=== PATIENT | female | born 1980 | race American Indian/Alaskan Native ===

== ENCOUNTER 2016-09-19 21:47 | Emergency (ER) | payer MEDICAID, OTHER ==
[2016-09-19 21:47] VITALS: BMI 29.1
[2016-09-19 21:56] VITALS: BP 108/74; PULSE 110; TEMP 98.5; O2SAT 98
[2016-09-19] MEDS ORDERED: DiphenhydrAMINE 50 mg/ml Inj IM STA (22:44)
[2016-09-19] MEDS ORDERED: DiphenhydrAMINE 50 mg/ml Inj ONE (22:49)
--- NOTE | 2016-09-19 22:50 | C.PDOC ---
History Of Present Illness 36 year old patient presents to the ED complaining of a generalized rash that began after spending a night at her friend's house. Patient notes the rash is itchy. Patient denies any fever, chills, nausea, vomiting, chest tightness, lip swelling, or difficulty breathing. Time Seen by Provider: 09/19/16 22:26 Chief Complaint (Nursing): Abnormal Skin Integrity History Per: Patient History/Exam Limitations: no limitations Onset/Duration Of Symptoms: Hrs (this morning) Current Symptoms Are (Timing): Still Present Quality Of Symptoms: Itching Severity: Mild Pain Scale Rating Of: 3 Recent travel outside of the [place]: No Past Medical History Reviewed: Historical Data, Nursing Documentation, Vital Signs Vital Signs: Last Vital Signs Temp 98.5 F 09/19/16 21:52 Pulse 110 H 09/19/16 21:52 Resp 20 09/19/16 23:04 BP 108/74 09/19/16 21:52 Pulse Ox 98 09/19/16 22:58 - Medical History PMH: Asthma Surgical [facility]: [place] [facility] [place]JECT/INFUSE ELECTROLYT (02/01/14) INJECT/INFUSE NEC (02/01/14) Family History: States: Unknown Family Hx - Social History Hx Tobacco Use: Yes Hx Alcohol Use: Yes Hx Substance Use: No - Immunization History Hx Tetanus Toxoid Vaccination: No Hx Influenza Vaccination: Yes Hx Pneumococcal Vaccination: No Review Of Systems Except As Marked, All Systems Reviewed And Found Negative. Constitutional: Negative for: Fever, Chills ENT: Negative for: Mouth Swelling Respiratory: Negative for: Shortness of Breath, Other (chest tightness) Gastrointestinal: Negative for: Nausea, Vomiting Skin: Positive for: Rash (generalized, itchy) Physical Exam - Physical Exam Appears: Non-toxic, No Acute Distress Skin: Warm, Dry, Rash (scattered, erythematous, papular; consistent with insect bite; on neck, lower abdomen, lower back) Head: Atraumatic, Normacephalic Eye(s): bilateral: Normal Inspection, EOMI Ear(s): Bilateral: Normal Nose: Normal Oral Mucosa: Moist Tongue: Normal Appearing Lips: Normal Appearing Throat: Normal Neck: Normal ROM, Supple Chest: Symmetrical Cardiovascular: Rhythm Regular Respiratory: Normal Breath Sounds, No Rales, No Rhonchi, No Wheezing Extremity: Normal ROM Neurological/Psych: Oriented x3, Normal Speech, Normal Cognition Gait: Steady ED Course And Treatment O2 Sat by Pulse Oximetry: 98 Pulse Ox Interpretation: Normal Progress Note: Plan: Benadryl. Upon reassessment, patient is resting comfortably, tolerating PO, has no shortness of breath, has no intra-oral swelling, no stridor, and improving pruritus. Patient was advised to avoid potential allergens, and to follow up with physician. Return if symptoms worsen. Disposition Counseled Patient/Family Regarding: Diagnosis, Need For Followup - Disposition Referrals: Kendra Tavarez MD [Medical Doctor] - Disposition: HOME/ ROUTINE Disposition Time: 22:47 Condition: STABLE Additional Instructions: Take medications prescribed Follwo up with pMD Return to ER if worse Prescriptions: DiphenhydrAMINE [Benadryl] 50 mg PO Q6H #20 cap Instructions: Insect Bite or Sting (ED) - Clinical Impression Clinical Impression: Insect bite - PA / SKEIN SPOOLER / Resident Statement MD/DO has reviewed & agrees with the documentation as recorded. - Scribe Statement The provider has reviewed the documentation as recorded by the Scribe Ya Love All medical record entries made by the Scribe were at my direction and personally dictated by me. I have reviewed the chart and agree that the record accurately reflects my personal performance of the history, physical exam, medical decision making, and the department course for this patient. I have also personally directed, reviewed, and agree with the discharge instructions and disposition.
[2016-09-19 23:04] VITALS: RESP 20
== END 2016-09-19 23:04 | disposition home or self-care (01) ==
LOC: C.ER 21:47
DX: S30.860A Insect bite (nonvenomous) of lower back and pelvis, initial encounter (principal); S30.861A Insect bite (nonvenomous) of abdominal wall, initial encounter; S10.96XA Insect bite of unspecified part of neck, initial encounter; W57.XXXA Bitten or stung by nonvenomous insect and other nonvenomous arthropods, initial encounter; Y93.9 Activity, unspecified; Y92.009 Unspecified place in unspecified non-institutional (private) residence as the place of occurrence of the external cause
CPT/HCPCS: 96372; 99282; J1200

== ENCOUNTER 2017-08-20 01:33 | Emergency (ER) | payer MEDICAID ==
[2017-08-20 01:34] VITALS: BMI 29.1
--- NOTE | 2017-08-20 01:51 | C.PDOC ---
History Of Present Illness 37 year old female presents to the ED stating her sinuses are bothering her and c/o SOB. Patient has a strong alcohol smell on her breath. Patient is able to speak in complete sentences. Patient denies CP, headache, fever, chills, weakness, numbness. Time Seen by Provider: 08/20/17 01:51 Chief Complaint (Nursing): Shortness Of Breath History Per: Patient History/Exam Limitations: intoxication Onset/Duration Of Symptoms: Hrs Current Symptoms Are (Timing): Still Present Initiating Event: Other Quality: "Pain" Recent travel outside of the [place]: No Additional History Per: Patient Past Medical History Reviewed: Historical Data, Nursing Documentation, Vital Signs Vital Signs: Last Vital Signs Temp 98.0 F 08/20/17 03:32 Pulse 105 H 08/20/17 03:32 Resp 20 08/20/17 03:32 BP 136/71 08/20/17 03:32 Pulse Ox 99 08/20/17 03:32 - Medical History PMH: Asthma Denies: Depression, Chronic Kidney Disease Surgical History: [facility] INJECT/INFUSE ELECTROLYT (02/01/14) INJECT/INFUSE NEC (02/01/14) Family History: States: Unknown Family Hx - Social History Hx Tobacco Use: Yes Hx Alcohol Use: Yes Hx Substance Use: No - Immunization History Hx Tetanus Toxoid Vaccination: No Hx Influenza Vaccination: Yes Hx Pneumococcal Vaccination: No Review Of Systems Constitutional: Negative for: Fever, Chills ENT: Positive for: Nose Congestion Cardiovascular: Negative for: Chest Pain Respiratory: Positive for: Shortness of Breath. Negative for: Cough Gastrointestinal: Negative for: Vomiting, Abdominal Pain Skin: Negative for: Rash Neurological: Negative for: Headache Physical Exam - Physical Exam Appears: Non-toxic, No Acute Distress, Other (AOB) Skin: Warm, Dry Head: Normacephalic Eye(s): bilateral: Normal Inspection Ear(s): Bilateral: Normal Nose: No Discharge Oral Mucosa: Dry Throat: No Erythema, No Exudate Neck: Normal ROM, Supple Chest: Symmetrical Cardiovascular: Rhythm Regular, No Murmur Respiratory: No Rales, No Rhonchi, No Wheezing Gastrointestinal/Abdominal: Soft, No Tenderness, No Guarding, No Rebound Extremity: Normal ROM, No Tenderness, No Swelling Neurological/Psych: Oriented x3 Gait: Steady ED Course And Treatment O2 Sat by Pulse Oximetry: 96 (ON RA) Pulse Ox Interpretation: Normal Progress Note: Plan: - Duoneb 3 ml IH. - Nebulizer treatment Reevaluation Time: 04:08 Reassessment Condition: Improved Critical Care Time - Critical Care Note Total Time (in mins): 30 Documented critical care: time excludes all time spent performing seperately billable procedures. Medical Decision Making Medical Decision Making: Upon provider reevaluation patient is feeling better, is medically stable, and requires no further treatment in the ED at this time. Patient will be discharged home with Rx for prednisone, albuterol, nasonex . Counseling was provided and all questions were answered regarding diagnosis and need for follow up with dr Tavarez. There is agreement to discharge plan. Return if symptoms persist or worsen. Disposition Counseled Patient/Family Regarding: Studies Performed, Diagnosis, Need For Followup, Rx Given - Disposition Referrals: Kendra Tavarez MD [Family Provider] - Disposition: HOME/ ROUTINE Disposition Time: 01:51 Condition: FAIR Additional Instructions: Please return if symptoms recur Prescriptions: Albuterol HFA [Ventolin HFA 90 mcg/actuation (8 g)] 2 puff IH [id number] #1 puff Mometasone Furoate [Nasonex] 17 gm NS DAILY #1 spray.pump Prednisone [Deltasone] 20 mg PO DAILY #5 tablet Instructions: Seasonal Allergies in Adults, Asthma, Adult (DC) Forms: [facility] (Hungarian) - Clinical Impression Clinical Impression: Asthma, Nasal congestion - Scribe Statement The provider has reviewed the documentation as recorded by the Scribe Leonardo Harp All medical record entries made by the Scribe were at my direction and personally dictated by me. I have reviewed the chart and agree that the record accurately reflects my personal performance of the history, physical exam, medical decision making, and the department course for this patient. I have also personally directed, reviewed, and agree with the discharge instructions and disposition.
[2017-08-20] MEDS: Albuterol-Ipratrop 3 mg / 0.5 (3 ml) UD IH SCH (02:41)
[2017-08-20] MEDS ORDERED: Albuterol-Ipratrop 3 mg / 0.5 (3 ml) UD ONE (02:45)
[2017-08-20 03:34] VITALS: BP 136/71; PULSE 105; RESP 20; TEMP 98
[2017-08-20 04:09] VITALS: O2SAT 96
== END 2017-08-20 04:10 | disposition home or self-care (01) ==
LOC: C.ER 01:33
DX: J45.909 Unspecified asthma, uncomplicated (principal); R09.81 Nasal congestion; F17.210 Nicotine dependence, cigarettes, uncomplicated